=== PATIENT | male | born 1970 | race Caucasian/White ===

== ENCOUNTER 2019-10-30 15:34 | Emergency (ER) | payer MEDICAID ==
[~2019-10-30] VITALS: Ht 170.2 cm; Wt 75.1 kg
[2019-10-30 15:36] VITALS: BP 127/82
--- NOTE | 2019-10-30 15:54 | NUR ---
Note yong in EDM - 10/30/19 at 1617 by BERTHA ASSUMED CARE OF PATIENT. PATIENT REPORTS HE JUST [facility] AND HE HAS BEEN WALKING ON HIS FEET A LOT. PT REPORTS LEFT FOOT PAIN. PT ALSO REPORTS HE RECENTLY DID METH. VS STABLE. PT SEEN BY DR CUMMINGS. NO ACUTE DISTRESS NOTED. CALL LIGHT IN PLACE. WILL CONTINUE TO MONITOR.
--- NOTE | 2019-10-30 15:54 | NUR ---
ASSUMED CARE OF PATIENT. PATIENT REPORTS HE JUST GOT [facility] AND HE HAS BEEN WALKING ON HIS FEET A LOT. PT REPORTS RIGHT FOOT PAIN. PT ALSO REPORTS HE RECENTLY DID METH. VS STABLE. PT SEEN BY DR CUMMINGS. NO ACUTE DISTRESS NOTED. CALL LIGHT IN PLACE. WILL CONTINUE TO MONITOR.
[2019-10-30] MEDS ORDERED: NEOSPORIN OINT. PKT 1 PACKET ONE (16:09)
--- NOTE | 2019-10-30 16:17 | NUR ---
DRESSING APPLIED TO LEFT FOOT PER DR CUMMINGS. PT GIVEN NEW SOCKS. PT READY FOR DC.
--- NOTE | 2019-10-30 16:43 | NUR ---
NO XRAY NEEDED PER DR CUMMINGS
== END 2019-10-30 16:44 | disposition home or self-care (01) ==
LOC: ED 16:27
DX: S90.424A Blister (nonthermal), right lesser toe(s), initial encounter (principal); X58.XXXA Exposure to other specified factors, initial encounter; Y93.89 Activity, other specified; Y92.89 Other specified places as the place of occurrence of the external cause; Y99.8 Other external cause status
CPT/HCPCS: 99281

== ENCOUNTER 2019-11-01 16:22 | Emergency (ER) | payer MEDICAID ==
[~2019-11-01] VITALS: Ht 170.2 cm; Wt 74.6 kg
[2019-11-01 16:25] VITALS: BP 147/85
--- NOTE | 2019-11-01 17:51 | NUR ---
SALES MANAGEMENT TRAINEE: PT TO ROOM FROM [facility]
[2019-11-01] MEDS ORDERED: HYDROcodone/APAP 5/325 TABLET PO STA (18:19)
[2019-11-01] MEDS ORDERED: HYDROcodone/APAP 5/325 TABLET ONE (18:32)
--- NOTE | 2019-11-01 18:40 | NUR ---
PT MEDICATED PER MAR FOR PAIN
--- NOTE | 2019-11-01 20:21 | NUR ---
pt robson monte stating, "i can't use that. it's too tall."
== END 2019-11-01 20:22 | disposition home or self-care (01) ==
LOC: ED 18:21
DX: M13.172 Monoarthritis, not elsewhere classified, left ankle and foot (principal); M13.171 Monoarthritis, not elsewhere classified, right ankle and foot; B35.3 Tinea pedis; Z72.9 Problem related to lifestyle, unspecified; Z59.0 Homelessness; F17.200 Nicotine dependence, unspecified, uncomplicated
CPT/HCPCS: 99283

== ENCOUNTER 2020-10-27 03:17 | Emergency (ER) | payer MEDICAID ==
[~2020-10-27] VITALS: Ht 172.7 cm; Wt 69.1 kg
--- NOTE | 2020-10-27 03:44 | NUR ---
PT STATES HAD A SELF INFLICTED INJURY FROM TRYING TO SHOOT UP METH 3 DAYS AGO. PAIN WAS 9/10 NOW IS 6/10.
[2020-10-27 03:51] VITALS: BP 132/86
--- NOTE | 2020-10-27 04:09 | NUR ---
Patient given discharge instructions and they have confirmed that they understand the instructions. Patient ambulatory with steady gait. No further quesitons.
== END 2020-10-27 04:11 | disposition home or self-care (01) ==
LOC: ED 03:34
DX: L03.114 Cellulitis of left upper limb (principal); L03.113 Cellulitis of right upper limb; F15.129 Other stimulant abuse with intoxication, unspecified; M19.90 Unspecified osteoarthritis, unspecified site; F17.210 Nicotine dependence, cigarettes, uncomplicated; Z72.9 Problem related to lifestyle, unspecified
CPT/HCPCS: 99283; 99406

== ENCOUNTER 2020-11-23 23:23 | Emergency (ER) | payer MEDICAID ==
[~2020-11-23] VITALS: Ht 170.2 cm; Wt 69.9 kg
[2020-11-24] MEDS ORDERED: LIDOCAINE-MPF 1%, 5ML INFIL ONE
[2020-11-24 00:12] LABS: BASOPHILS % (AUTO) 1 % (0-1); EOSINOPHILS % (AUTO) 3 % (1-7); LYMPHOCYTES % (AUTO) 36 % (22-44); MEAN CORPUSCULAR HEMOGLOBIN 30.1 pg (27.5-34.5); MEAN CORPUSCULAR HGB CONC 33.3 g/dL (33.2-36.2); MEAN PLATELET VOLUME 8.6 fL (7.4-10.4); MONOCYTES % (AUTO) 10 % (2-9); NEUTROPHILS % (AUTO) 51 % (42-75); PLATELET COUNT 314 x10^3/uL (130-400); RED BLOOD COUNT 4.14 x10^6/uL (4.38-5.82); RED CELL DISTRIBUTION WIDTH 13.8 % (9.4-14.8)
[2020-11-24 00:16] LABS: MD NO
[2020-11-24 00:25] LABS: ALBUMIN 3.1 g/dL (3.4-5.0); ANION GAP 5 mmol/L (5-15); CALCIUM 8.6 mg/dL (8.5-10.1); CHLORIDE 108 mmol/L (98-107); CREATININE 1.31 mg/dL (0.7-1.3)
[2020-11-24] MEDS ORDERED: LIDOCAINE-MPF 1%, 5ML ONE (00:29)
--- NOTE | 2020-11-24 00:30 | NUR ---
PT MADE AWARE OF NEED FOR URINE SAMPLE
--- NOTE | 2020-11-24 00:33 | NUR ---
US AT BEDSIDE
[2020-11-24 00:50] VITALS: BP 115/78
--- NOTE | 2020-11-24 00:58 | NUR ---
Report from QIANA Velez. This RN to assume care.
[2020-11-24 01:00] LABS: MICROSCOPIC AUTO
--- NOTE | 2020-11-24 01:44 | NUR ---
Patient/Caregiver given discharge instructions and they have confirmed that they understand the instructions. Patient ambulatory with steady gait.
== END 2020-11-24 01:46 | disposition home or self-care (01) ==
LOC: ED 11-24 01:16
DX: N43.3 Hydrocele, unspecified (principal); L02.414 Cutaneous abscess of left upper limb; N50.812 Left testicular pain; M19.90 Unspecified osteoarthritis, unspecified site
CPT/HCPCS: 10060; 36415; 76870; 80048; 81001; 82040; 85025; 87491; 87591; 99284

== ENCOUNTER 2020-12-12 12:18 | Emergency (ER) | payer MEDICAID ==
[~2020-12-12] VITALS: Ht 170.2 cm; Wt 72.2 kg
[2020-12-12 13:08] LABS: BASOPHILS % (AUTO) 1 % (0-1); EOSINOPHILS % (AUTO) 2 % (1-7); LYMPHOCYTES % (AUTO) 15 % (22-44); MEAN CORPUSCULAR HEMOGLOBIN 30.9 pg (27.5-34.5); MEAN CORPUSCULAR HGB CONC 33.5 g/dL (33.2-36.2); MONOCYTES % (AUTO) 5 % (2-9); NEUTROPHILS % (AUTO) 77 % (42-75); PLATELET COUNT 250 x10^3/uL (130-400); RED BLOOD COUNT 4.56 x10^6/uL (4.38-5.82); RED CELL DISTRIBUTION WIDTH 13.6 % (9.4-14.8)
--- NOTE | 2020-12-12 13:10 | NUR ---
REPORT TO QIANA BATISTA. PT LAYING BACK IN BED, NAD NOTED AT THIS TIME.
[2020-12-12 13:18] LABS: ALBUMIN 3.1 g/dL (3.4-5.0); ANION GAP 5 mmol/L (5-15); CALCIUM 8.8 mg/dL (8.5-10.1); CHLORIDE 106 mmol/L (98-107); CREATININE 1.05 mg/dL (0.7-1.3); MD NO
[2020-12-12 13:21] LABS: TROPONIN I < 0.015 ng/mL (0.000-0.045)
--- NOTE | 2020-12-12 13:53 | NUR ---
Orthostatic vs: supine 117/77 left arm, HR 74, not dizzy sitting 125/80 left arm, HR 72, dizzy when changing to sitting position standing 114/77 left arm, HR 92, dizzy when changing to standing position
[2020-12-12] MEDS ORDERED: ONDANSETRON 2MG/ML, 2ML IVPush ONE (14:00)
[2020-12-12] MEDS ORDERED: SODIUM CHLORIDE FLUSH 10ML SYR IVF ONE (14:00)
[2020-12-12] MEDS ORDERED: SODIUM CHLORIDE 0.9% 1,000ML IVBOLUS ONE (14:00)
[2020-12-12] MEDS ORDERED: SODIUM CHLORIDE 0.9% 1,000 ML IV ONE (14:00)
--- NOTE | 2020-12-12 14:02 | NUR ---
pt resting in bed, respirations even and unlabored on ra. Girl friend at bedside.
[2020-12-12] MEDS ORDERED: ONDANSETRON 2MG/ML, 2ML ONE (14:55)
--- NOTE | 2020-12-12 15:45 | NUR ---
pt ambulates well to bathroom independently.
[2020-12-12 16:26] VITALS: BP 131/83
== END 2020-12-12 16:28 | disposition home or self-care (01) ==
LOC: ED 12:57
DX: R42 Dizziness and giddiness (principal); R11.0 Nausea; R94.31 Abnormal electrocardiogram [ECG] [EKG]; F17.210 Nicotine dependence, cigarettes, uncomplicated
CPT/HCPCS: 36415; 80048; 82040; 84484; 85025; 93005; 96361; 96374; 99285; J2405; J7030